=== PATIENT | female | born 2000 | race Caucasian/White ===

== ENCOUNTER → 2020-04-19 | Outpatient (CLI) | payer OTHER | LOC: LAB 13:30 | PROVIDERS: ATTEND Family Medicine | DX: Z20.822 Contact with and (suspected) exposure to COVID-19 (principal) ==

== ENCOUNTER 2020-11-20 16:44 | Inpatient (IN) | payer OTHER ==
[~2020-11-20] VITALS: Ht 175.3 cm; Wt 97.5 kg
[2020-11-20 17:06] VITALS: BP 113/83
[2020-11-20] MEDS ORDERED: ATIVAN1 M1 PO (17:10)
[2020-11-20] MEDS ORDERED: AUROVELA 21 1.1 EACH PO (17:11)
[2020-11-20] MEDS ORDERED: HYDROCODON-ACE1 EAC7 PO (17:11)
[2020-11-20] MEDS ORDERED: IBUPROFEN 800800 M1 PO (17:11)
[2020-11-20 17:33] LABS: ABSOLUTE NEUTROPHILS 10.4 thou/uL (1.4-8.2); BASOPHILS 0.2 % (0.0-2.0); EOSINOPHILS 0.1 % (0.0-3.0); HEMATOCRIT 35.5 % (37.0-47.0); LYMPHOCYTES 11.1 % (24.0-44.0); MCH 32.3 pg (26.0-34.0); MCHC 33.7 g/dL (28.0-37.0); MCV 95.9 fL (80.0-100.0); MONOCYTES 9.3 % (1.0-8.0); PLATELET COUNT 203 thou/uL (150-400); POLYS 79.3 % (36.0-66.0); WBC 13.1 thou/uL (4.0-11.0)
[2020-11-20 17:45] LABS: CALCIUM 8.9 mg/dL (8.5-10.1); CREATININE 0.8 mg/dL (0.6-1.0); POTASSIUM 3.2 mmol/L (3.5-5.1)
[2020-11-20 19:56] VITALS: BP 106/88
--- NOTE | 2020-11-21 04:28 | NUR ---
PT C/O SIGNIFICANT PAIN IN ABSCESS WOUND EARLIER IN THE NIGHT. PRN MORPHINE GIVEN WITH SOME RELIEF. DRESSING CHANGED TO WOUND SITE IT WAS SATURATED WITH BROWN PUS AND DRAINAGE. ICE PACK APPLIED TO WOUND AREA TO HELP WITH PAIN, TENDERNESS. PT HAS SINCE BEEN SLEEPING. NPO SINCE MIDNIGHT FOR SURGERY TODAY. WILL MONITOR FURTHER.
--- NOTE | 2020-11-21 06:02 | NUR ---
[facility] CALLED FOR REPORT ON PT. THEY ARE COMING TO GET PT FOR SURGERY NOW.
--- NOTE | 2020-11-21 06:15 | NUR ---
PT TRANSPORTED TO SURGERY.
[2020-11-21 07:04] VITALS: BP 122/74
[2020-11-21 11:56] VITALS: BP 122/74
[2020-11-22] MEDS ORDERED: HYDROCODON-ACE1 EAC7 PO (14:30)
--- NOTE | 2020-11-23 12:07 | PATH ---
[facility] [address] [place] [address] PATHOLOGY RPT PROCEDURE Name: COURTNEY BARRIOS Room #: 432-P DIS IN M.R.#: [id number] Admission: 11/20/20 Date of : 89 Discharge: 11/21/20 Report #: [id number] Path Case #: [id number] [facility] Accession Number: [id number] . 01 Material submitted: . gluteal cleft - PILONDIAL CYST . 01 Clinical history: . COVID PNEUMONIA, HYPOXIA INCISION AND DRAINAGE PILONDIAL CYST . 02 Diagnosis: Pilonidal cyst, excision: - Marked acute inflammation associated with abscess formation, history of pilonidal cyst. - Overlying squamous epithelium showing reactive changes. (IUV:cloth roll winder; 11/22/2020) MBR 11/22/2020 1805 Local . 02 Electronically signed: . Veronika Land MD, Pathologist NPI- [id number] . 01 Gross description: . The specimen is received in formalin, labeled "Courtney Barrios L and pilonidal cyst". It consists of a [place] irregular skin and soft tissue fragment measuring 2.3 x 1.7 and excised to a depth of 0.9 cm. The epidermal surface appears wor[place]-brown, hemorrhagic, and focally disrupted. Sectioning reveals wor[place]-white rubbery cut surfaces. Statement Clerk sections are submitted in A1. (MRF; 11/21/2020) MFE/MFE 11/21/2020 1902 Local . 02 Pathologist provided ICD-10: L05.01 . 02 CPT . 952655 Specimen Comment: A courtesy copy of this report has been sent to [phone] Specimen Comment: [id number] Specimen Comment: Report sent to / DR HOBSON Performed at: [address] [id number] MD Dario Wright MD Phone: [phone] Performed at: 02 [place] [address] PATHOLOGY RPT PROCEDURE Name: COURTNEY BARRIOS Room #: 432-P DIS IN M.R.#: [id number] Admission: 11/20/20 Date of : 89 Discharge: 11/21/20 Report #: [id number] Path Case #: [id number] [facility] [address], [place], [place] [id number] MD Veronika Land MD Phone: [phone]
--- NOTE | 2020-12-10 18:23 | O ---
[facility] [place] [address] [address] OPERATIVE REPORT Name: MALI BARRIOS Room #: 432-P [facility] IN M.R.#: [id number] Admission: 11/20/20 Attend Phys: Isiah Thornton, Discharge: 11/21/20 Date of : 89 Report #: [id number] THIS REPORT FOR: cc: Haroldo Cisneros James A. DO Patterson,Isiah Villa MD ~ DATE OF SERVICE: 11/21/2020 PREOPERATIVE DIAGNOSIS: Infected pilonidal cyst. POSTOPERATIVE DIAGNOSIS: Infected pilonidal cyst. OPERATION: Excision of infected pilonidal cyst. SURGEON: Isiah Thornton MD ANESTHESIA: General. ESTIMATED BLOOD LOSS: Minimal. SPECIMENS: Pilonidal cyst. DESCRIPTION OF PROCEDURE: After informed consent was obtained, the patient was brought to the operating room and placed supine. SCDs were placed and working and the patient was placed under general anesthesia. The patient was then placed in the right lateral decubitus position. Bony prominences were protected and axillary roll was placed. The area was then prepped and draped in the usual sterile fashion. I made an incision just to the left of the midline. This was an elliptical incision measuring 2 x 2 cm. The skin and underlying cyst were excised with cautery. There was a cavity measuring approximately 4 x 4 cm. This was irrigated with normal saline. Pus was drained. The area was then packed with sterile gauze. Sterile dressings were applied. COMPLICATIONS: None. DISPOSITION: The patient was taken to recovery in satisfactory condition. <ELECTRONICALLY SIGNED> By: Isiah Thornton MD 12/10/20 1823 [id number] [id number] Isiah Thornton MD /nt
== END 2020-11-21 18:00 | disposition home or self-care (01) | DRG 603 ==
LOC: ER 16:44 → 4E 17:46 → EROBS 18:51 → ER 18:51 → TBA 11-21 06:47 → 4E 11-21 18:00
PROVIDERS: Nurse Practitioner; ADMIT Surgery; ATTEND Surgery
PROC: 0HB8XZZ Excision of Buttock Skin, External Approach (ICD-10-PCS; principal; 2020-11-21)
DX: L05.01 Pilonidal cyst with abscess (principal); K61.1 Rectal abscess; R65.10 Systemic inflammatory response syndrome (SIRS) of non-infectious origin without acute organ dysfunction; F17.210 Nicotine dependence, cigarettes, uncomplicated; Z20.822 Contact with and (suspected) exposure to COVID-19; Z79.899 Other long term (current) drug therapy; Z72.89 Other problems related to lifestyle
CPT/HCPCS: 10783; 50010; 50101; 50386; 50403; 62110; 62900; 70005